=== PATIENT | male | born 1940 | race Caucasian/White ===

== ENCOUNTER 2017-10-03 15:17 | Inpatient (IN) | payer MEDICARE, OTHER ==
[2017-10-03] VITALS (12 sets, daily range): BP systolic 131–165; BP diastolic 63–81
[~2017-10-03] VITALS: Ht 175.3 cm; Wt 113.4 kg
--- NOTE | ~2017-10-03 | EC ---
PATIENT:LEONARD THOMPSON DATE OF SERVICE: 10/03/17 SEX: M MEDICAL RECORD: [id number] DATE OF : 40 LOCATION:[facility] AGE OF PATIENT: 77 ADMISSION DATE: 10/03/17 REFERRING PHYSICIAN: INTERPRETING PHYSICIAN: WENDY JOHNSON MD ECHOCARDIOGRAM REPORT ECHO CHARGES 4 ECHO COMPLETE Date: 10/05 CLINICAL DIAGNOSIS: CHF HX CAD/CABG/PACER ECHOCARDIOGRAPHIC MEASUREMENTS (adult normal given) AC root (d.<3.7cm) 4.3 cm LV Septum d (<1.2 cm> 1.5 cm Valve Excursion 1.7 cm LV Septum (systole) 1.7 cm Left Atria (s.<4.0cm> 4.3 cm LVPW d(<1.2cm) 1.4 cm RV (d.<2.3cm) 5.9 cm LVPW (sytole) 1.9 cm LV diastole(<5.6CM) 5.7 cm MV E-F(>70mm/sec) cm LV systole 3.7 cm LVOT Diameter 1.6 cm MV exc.(>10mm) 1.9 cm Est.ejection fraction (50-75%) % DOPPLER: LVIT cm/sec A 65.0 cm/sec E 123 cm/sec LA cm/sec RVSP 32 mmHg LVOT 86 cm/sec AOP1/2T m/s Asc. 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 Johnson TAPE# PACS Pericardial Effusion N DATE OF SERVICE: PROCEDURE: Transthoracic echocardiogram. FINDINGS: 1. The overall ejection fraction is 25% to 30%. There is anterior septal dyskinesis. 2. The left atrium is normal size, structure, and function. 3. The aortic valve is sclerotic. Mild aortic insufficiency. 4. The mitral valve has mild mitral regurgitation. ECHOCARDIOGRAM REPORT [id number] LEONARD THOMPSON 5. The tricuspid valve has mild tricuspid regurgitation. RVSP of 32 mmHg. 6. The right ventricle is severely dilated. 7. The right atrium is severely dilated. CONCLUSION: The patient has evidence of hypertensive heart disease. Inflow characteristics consistent with grade III diastolic dysfunction. The patient's ejection fraction is reduced and there are regional wall motion abnormalities. TRANSINT:[id number] Voice Confirmation ID: [id number] DOCUMENT ID: [id number] WENDY JOHNSON MD at 0927 CC: [id number] DICTATION DATE: 10/06/17822 [employer]: 10/06/17 0901 ADM IN [place] [id number] [place] [id number]
[2017-10-03] MEDS ORDERED: METOLAZONE2.5 MG PO (16:41)
[2017-10-03] MEDS ORDERED: ARICEPT5 MG PO ×2 (16:42→16:43)
[2017-10-03] MEDS ORDERED: POTASSIUM CHLO20 MEQ PO (16:42)
[2017-10-03] MEDS ORDERED: LEVOXYL50 MCG PO (16:43)
[2017-10-03] MEDS ORDERED: OMEPRAZOLE20 M1 PO (16:43)
[2017-10-03] MEDS ORDERED: REFRESH TEARS15 ML EACH EYE (16:44)
[2017-10-03] MEDS ORDERED: FUROSEMIDE20 MG PO (16:44)
[2017-10-03] MEDS ORDERED: COREG6.25 MG PO (16:44)
[2017-10-03] MEDS ORDERED: FLOMAX0.4 MG PO (16:45)
[2017-10-03] MEDS ORDERED: ASPIRIN EC81 M1 PO (16:45)
[2017-10-03] MEDS ORDERED: SENNA LAXATIVE8.6 MG PO (16:45)
[2017-10-03] MEDS ORDERED: ZYLOPRIM100 MG PO (16:46)
[2017-10-03] MEDS ORDERED: HYDROCODONE-APA1 TAB PO (16:48)
[2017-10-03 18:21] LABS: BASOPHILS 0.2 % (0-2); EOSINOPHILS 1.5 % (0-7); HEMATOCRIT 37.8 % (42.0-54.0); HEMOGLOBIN 12.2 g/dL (13.5-17.5); IMMATURE GRANULOCYTES 0.2 % (0-5); LYMPHOCYTES 13.2 % (15-50); MCH 29.3 pg (26.0-34.0); MCHC 32.3 g/dL (31.0-37.0); MCV 90.6 fL (80.0-100.0); MEAN PLATELET VOLUME 9.2 fL (7.4-10.4); MONOCYTES 10.3 % (2-11); NEUTROPHILS 74.6 % (40-80); PLATELET COUNT 284 10x3/uL (130-400); RBC 4.17 10x6/uL (4.20-6.10); RDW 16.3 % (11.5-14.5); WBC 9.5 10x3/uL (4.8-10.8)
[2017-10-03 18:37] LABS: ALBUMIN 2.8 g/dL (3.4-5.0); ANION GAP 4.6 mmol/L (8-16); BILIRUBIN - TOTAL 0.35 mg/dL (0.2-1.3); CARBON DIOXIDE 37.7 mmol/L (21.0-32.0); CREATININE - SERUM 1.2 mg/dL (0.6-1.3); POTASSIUM - SERUM 3.3 mmol/L (3.5-5.1); PROTEIN - SERUM 7.2 g/dL (6.4-8.2)
[2017-10-03 21:16] LABS: APPEARANCE CLEAR (CLEAR); BILIRUBIN NEGATIVE (NEGATIVE); COLOR YELLOW (YELLOW); GLUCOSE NEGATIVE (NEGATIVE); KETONE NEGATIVE (NEGATIVE); NITRITE NEGATIVE (NEGATIVE); PROTEIN NEGATIVE (NEGATIVE); SPECIFIC GRAVITY 1.015 (1.005-1.020); UROBILINOGEN NORMAL (NORMAL)
[2017-10-03 21:19] LABS: BACTERIA FEW /hpf (NONE SEEN); WHITE CELLS - URINE 0-5 /hpf (0-5)
[2017-10-04] VITALS (7 sets, daily range): BP systolic 136–160; BP diastolic 60–72; Ht 175.3 cm; Wt 113.4 kg
[2017-10-04] MEDS ORDERED: ATIVAN0.5 MG PO (12:50)
[2017-10-04] MEDS ORDERED: MIRALAX17 GM PO (12:55)
[2017-10-04 17:44] LABS: T4 THYROXIN - FREE 1.08 ng/dL (0.76-1.46); THYROID STIMULATING HORMONE 0.5 uIU/mL (0.36-3.74)
[2017-10-05] VITALS: BP 134/68
[2017-10-05 06:57] LABS: BASOPHILS 0.4 % (0-2); EOSINOPHILS 3.5 % (0-7); HEMATOCRIT 33.8 % (42.0-54.0); HEMOGLOBIN 10.9 g/dL (13.5-17.5); IMMATURE GRANULOCYTES 0.1 % (0-5); LYMPHOCYTES 22.3 % (15-50); MCH 28.9 pg (26.0-34.0); MCHC 32.2 g/dL (31.0-37.0); MCV 89.7 fL (80.0-100.0); MEAN PLATELET VOLUME 9.1 fL (7.4-10.4); MONOCYTES 8.7 % (2-11); PLATELET COUNT 284 10x3/uL (130-400); RBC 3.77 10x6/uL (4.20-6.10); RDW 15.9 % (11.5-14.5); WBC 7.7 10x3/uL (4.8-10.8)
[2017-10-05 07:04] LABS: ALBUMIN 2.3 g/dL (3.4-5.0); ALKALINE PHOSPHATASE 103 U/L (46-116); CALCIUM 9.5 mg/dL (8.5-10.1); CHLORIDE - SERUM 106 mmol/L (98-107); GLUCOSE 105 mg/dL (74-106); PROTEIN - SERUM 6.1 g/dL (6.4-8.2); SODIUM 143 mmol/L (136-145)
[2017-10-05 07:05] LABS: ALT (SGPT) 7 U/L (10-68); CALC OSMOLALITY 286 mosm/kg (275-300); CREATININE - SERUM 0.6 mg/dL (0.6-1.3); UREA NITROGEN 19 mg/dL (7-18); eGFR NON AFRICAN AMERICAN > 90 mL/min (90-120)
[2017-10-05 07:06] LABS: POTASSIUM - SERUM 2.9 mmol/L (3.5-5.1)
[2017-10-05 09:18] VITALS: BP 137/69
[2017-10-05 13:25] VITALS: BP 147/72
[2017-10-05 14:35] LABS: % SATURATION 15 % (15-55); IRON 37 ug/dl (35-150); TOTAL IRON BIND CAPACITY 237 ug/dl (260-445); UNSAT IRON BIND CAPACITY 200 ug/dl (150-375)
[2017-10-05 16:20] VITALS: BP 130/60
[2017-10-05 20:00] VITALS: BP 136/65
[2017-10-06 04:00] VITALS: BP 167/73
[2017-10-06 06:11] LABS: BASOPHILS 0.5 % (0-2); EOSINOPHILS 6.1 % (0-7); HEMATOCRIT 34.5 % (42.0-54.0); HEMOGLOBIN 11.1 g/dL (13.5-17.5); IMMATURE GRANULOCYTES 0.1 % (0-5); LYMPHOCYTES 24.1 % (15-50); MCH 28.7 pg (26.0-34.0); MCHC 32.2 g/dL (31.0-37.0); MCV 89.1 fL (80.0-100.0); MONOCYTES 9.1 % (2-11); NEUTROPHILS 60.1 % (40-80); PLATELET COUNT 265 10x3/uL (130-400); RBC 3.87 10x6/uL (4.20-6.10); RDW 15.9 % (11.5-14.5); WBC 8.2 10x3/uL (4.8-10.8)
[2017-10-06 06:36] LABS: ALBUMIN 2.4 g/dL (3.4-5.0); ALKALINE PHOSPHATASE 109 U/L (46-116); ALT (SGPT) 8 U/L (10-68); CALC OSMOLALITY 285 mosm/kg (275-300); CALCIUM 9.6 mg/dL (8.5-10.1); CARBON DIOXIDE 31.4 mmol/L (21.0-32.0); CHLORIDE - SERUM 106 mmol/L (98-107); GLUCOSE 107 mg/dL (74-106); POTASSIUM - SERUM 3.1 mmol/L (3.5-5.1); PROTEIN - SERUM 6.3 g/dL (6.4-8.2); SODIUM 143 mmol/L (136-145); UREA NITROGEN 16 mg/dL (7-18)
[2017-10-06 06:38] LABS: CREATININE - SERUM 0.8 mg/dL (0.6-1.3); eGFR NON AFRICAN AMERICAN > 90 mL/min (90-120)
[2017-10-06 07:53] VITALS: BP 154/68
[2017-10-06 12:18] VITALS: BP 164/80
[2017-10-06 16:21] VITALS: BP 159/86
[2017-10-06 20:14] VITALS: BP 147/70
[2017-10-06 23:41] VITALS: BP 89/42
[2017-10-07 01:42] VITALS: BP 180/89
[2017-10-07 04:20] VITALS: BP 155/75
[2017-10-07 06:58] LABS: BASOPHILS 0.5 % (0-2); EOSINOPHILS 6.6 % (0-7); HEMATOCRIT 31.4 % (42.0-54.0); IMMATURE GRANULOCYTES 0.3 % (0-5); LYMPHOCYTES 22.5 % (15-50); MCH 28.2 pg (26.0-34.0); MCHC 31.8 g/dL (31.0-37.0); MCV 88.7 fL (80.0-100.0); MEAN PLATELET VOLUME 9.4 fL (7.4-10.4); MONOCYTES 8.5 % (2-11); NEUTROPHILS 61.6 % (40-80); PLATELET COUNT 264 10x3/uL (130-400); RBC 3.54 10x6/uL (4.20-6.10); RDW 15.6 % (11.5-14.5); WBC 7.7 10x3/uL (4.8-10.8)
[2017-10-07 07:19] LABS: ALBUMIN 2.2 g/dL (3.4-5.0); ALKALINE PHOSPHATASE 100 U/L (46-116); ALT (SGPT) 7 U/L (10-68); BILIRUBIN - TOTAL 0.21 mg/dL (0.2-1.3); CALC OSMOLALITY 281 mosm/kg (275-300); CALCIUM 9.1 mg/dL (8.5-10.1); CARBON DIOXIDE 30.2 mmol/L (21.0-32.0); CHLORIDE - SERUM 106 mmol/L (98-107); CREATININE - SERUM 0.9 mg/dL (0.6-1.3); GLUCOSE 94 mg/dL (74-106); POTASSIUM - SERUM 3.3 mmol/L (3.5-5.1); PROTEIN - SERUM 5.7 g/dL (6.4-8.2); SODIUM 141 mmol/L (136-145); UREA NITROGEN 14 mg/dL (7-18); eGFR NON AFRICAN AMERICAN 87 mL/min (90-120)
[2017-10-07 08:20] LABS: FOLATE (FOLIC ACID) - SERUM 19.3 ng/mL (>3.0)
[2017-10-07 09:08] VITALS: BP 150/69
[2017-10-07 11:45] VITALS: BP 133/62
[2017-10-07 15:36] VITALS: BP 144/77
[2017-10-07 21:24] VITALS: BP 188/83
[2017-10-08 04:01] VITALS: BP 173/82
[2017-10-08 06:04] LABS: BASOPHILS 0.3 % (0-2); EOSINOPHILS 5.6 % (0-7); HEMATOCRIT 32.9 % (42.0-54.0); HEMOGLOBIN 10.7 g/dL (13.5-17.5); IMMATURE GRANULOCYTES 0.3 % (0-5); LYMPHOCYTES 21.6 % (15-50); MCH 28.7 pg (26.0-34.0); MCHC 32.5 g/dL (31.0-37.0); MCV 88.2 fL (80.0-100.0); MEAN PLATELET VOLUME 8.9 fL (7.4-10.4); MONOCYTES 9.1 % (2-11); NEUTROPHILS 63.1 % (40-80); PLATELET COUNT 231 10x3/uL (130-400); RBC 3.73 10x6/uL (4.20-6.10); RDW 15.7 % (11.5-14.5); WBC 7.6 10x3/uL (4.8-10.8)
[2017-10-08 06:26] LABS: ALBUMIN 2.2 g/dL (3.4-5.0); ALKALINE PHOSPHATASE 100 U/L (46-116); BILIRUBIN - TOTAL 0.23 mg/dL (0.2-1.3); CALC OSMOLALITY 283 mosm/kg (275-300); CALCIUM 9.1 mg/dL (8.5-10.1); CHLORIDE - SERUM 107 mmol/L (98-107); CREATININE - SERUM 0.8 mg/dL (0.6-1.3); GLUCOSE 104 mg/dL (74-106); POTASSIUM - SERUM 3.3 mmol/L (3.5-5.1); PROTEIN - SERUM 5.9 g/dL (6.4-8.2); SODIUM 142 mmol/L (136-145); UREA NITROGEN 14 mg/dL (7-18); eGFR NON AFRICAN AMERICAN > 90 mL/min (90-120)
[2017-10-08 06:28] LABS: ALT (SGPT) 9 U/L (10-68)
[2017-10-08 08:32] VITALS: BP 179/84
[2017-10-08 12:25] VITALS: BP 144/49
[2017-10-08 15:51] VITALS: BP 161/82
[2017-10-08 20:00] VITALS: BP 165/80
[2017-10-09 04:00] VITALS: BP 162/73
[2017-10-09 05:54] LABS: BASOPHILS 0.4 % (0-2); EOSINOPHILS 5.4 % (0-7); HEMATOCRIT 35.1 % (42.0-54.0); HEMOGLOBIN 11.2 g/dL (13.5-17.5); IMMATURE GRANULOCYTES 0.3 % (0-5); LYMPHOCYTES 22.4 % (15-50); MCH 28.6 pg (26.0-34.0); MCHC 31.9 g/dL (31.0-37.0); MCV 89.8 fL (80.0-100.0); MEAN PLATELET VOLUME 9.2 fL (7.4-10.4); MONOCYTES 8.8 % (2-11); NEUTROPHILS 62.7 % (40-80); PLATELET COUNT 206 10x3/uL (130-400); RBC 3.91 10x6/uL (4.20-6.10); RDW 15.7 % (11.5-14.5)
[2017-10-09 06:17] LABS: ALBUMIN 2.3 g/dL (3.4-5.0); ALKALINE PHOSPHATASE 105 U/L (46-116); ALT (SGPT) 9 U/L (10-68); BILIRUBIN - TOTAL 0.25 mg/dL (0.2-1.3); CALC OSMOLALITY 291 mosm/kg (275-300); CALCIUM 9.3 mg/dL (8.5-10.1); CARBON DIOXIDE 29.7 mmol/L (21.0-32.0); CHLORIDE - SERUM 111 mmol/L (98-107); CREATININE - SERUM 0.7 mg/dL (0.6-1.3); GLUCOSE 97 mg/dL (74-106); POTASSIUM - SERUM 3.9 mmol/L (3.5-5.1); PROTEIN - SERUM 6.1 g/dL (6.4-8.2); SODIUM 147 mmol/L (136-145); UREA NITROGEN 12 mg/dL (7-18); eGFR NON AFRICAN AMERICAN > 90 mL/min (90-120)
[2017-10-09 08:25] VITALS: BP 100/79
[2017-10-09] MEDS ORDERED: FLORAJEN3 CAPS460 MG PO (11:47)
[2017-10-09] MEDS ORDERED: OMNICEF300 MG PO (11:47)
[2017-10-09 12:38] VITALS: BP 130/61
== END 2017-10-09 13:43 | DRG 871 ==
LOC: D.ER 15:17 → D.MS 23:01
PROVIDERS: Emergency Medicine; Family Medicine; Internal Medicine Nephrology
DX: A41.9 Sepsis, unspecified organism (principal); G93.41 Metabolic encephalopathy; N17.9 Acute kidney failure, unspecified; E44.0 Moderate protein-calorie malnutrition; F03.90 Unspecified dementia, unspecified severity, without behavioral disturbance, psychotic disturbance, mood disturbance, and anxiety; I10 Essential (primary) hypertension; N40.0 Benign prostatic hyperplasia without lower urinary tract symptoms; M10.9 Gout, unspecified; E87.6 Hypokalemia; I87.2 Venous insufficiency (chronic) (peripheral); L21.9 Seborrheic dermatitis, unspecified

== ENCOUNTER 2017-10-20 17:34 | Emergency (ER) | payer MEDICARE, OTHER ==
[~2017-10-20] VITALS: Ht 175.3 cm; Wt 89.2 kg
[~2017-10-20 17:34] MED LIST: ARICEPT5 MG PO; ASPIRIN EC81 M1 PO; ATIVAN0.5 MG PO; COREG6.25 MG PO; FLOMAX0.4 MG PO; FLORAJEN3 CAPS460 MG PO; FUROSEMIDE20 MG PO; HYDROCODONE-APA1 TAB PO; LEVOXYL50 MCG PO; METOLAZONE2.5 MG PO; MIRALAX17 GM PO; OMEPRAZOLE20 M1 PO; OMNICEF300 MG PO; POTASSIUM CHLO20 MEQ PO; REFRESH TEARS15 ML EACH EYE; SENNA LAXATIVE8.6 MG PO; ZYLOPRIM100 MG PO
[2017-10-20 17:43] VITALS: Ht 175.3 cm; Wt 89.2 kg
[2017-10-20 18:36] LABS: BASOPHILS 0.4 % (0-2); EOSINOPHILS 6.2 % (0-7); HEMATOCRIT 35.2 % (42.0-54.0); HEMOGLOBIN 11.1 g/dL (13.5-17.5); IMMATURE GRANULOCYTES 0.3 % (0-5); LYMPHOCYTES 23.8 % (15-50); MCH 28.9 pg (26.0-34.0); MCHC 31.5 g/dL (31.0-37.0); MCV 91.7 fL (80.0-100.0); MEAN PLATELET VOLUME 9.2 fL (7.4-10.4); MONOCYTES 11.4 % (2-11); NEUTROPHILS 57.9 % (40-80); RBC 3.84 10x6/uL (4.20-6.10); RDW 16.3 % (11.5-14.5); WBC 9.5 10x3/uL (4.8-10.8)
[2017-10-20 18:38] LABS: PLATELET COUNT 342 10x3/uL (130-400)
[2017-10-20 19:09] LABS: ACETAMINOPHEN 8.7 ug/mL (10.0-30.0); ALBUMIN 2.5 g/dL (3.4-5.0); ALKALINE PHOSPHATASE 104 U/L (46-116); ALT (SGPT) 8 U/L (10-68); BILIRUBIN - TOTAL 0.14 mg/dL (0.2-1.3); CALC OSMOLALITY 287 mosm/kg (275-300); CALCIUM 9.1 mg/dL (8.5-10.1); CARBON DIOXIDE 31.8 mmol/L (21.0-32.0); CHLORIDE - SERUM 105 mmol/L (98-107); CREATININE - SERUM 0.9 mg/dL (0.6-1.3); GLUCOSE 112 mg/dL (74-106); POTASSIUM - SERUM 4.3 mmol/L (3.5-5.1); PROTEIN - SERUM 6.3 g/dL (6.4-8.2); SODIUM 142 mmol/L (136-145); UREA NITROGEN 25 mg/dL (7-18); eGFR NON AFRICAN AMERICAN 87 mL/min (90-120)
[2017-10-20 19:36] LABS: APPEARANCE CLEAR (CLEAR); BILIRUBIN NEGATIVE (NEGATIVE); COLOR YELLOW (YELLOW); GLUCOSE NEGATIVE (NEGATIVE); KETONE NEGATIVE (NEGATIVE); NITRITE NEGATIVE (NEGATIVE); PROTEIN NEGATIVE (NEGATIVE); UROBILINOGEN NORMAL (NORMAL)
[2017-10-20 19:38] LABS: BACTERIA FEW /hpf (NONE SEEN); RED CELLS - URINE 0-5 /hpf (0-5); WHITE CELLS - URINE 0-5 /hpf (0-5)
[2017-10-20 20:20] LABS: UDS - AMPHET NEGATIVE QUAL (NEGATIVE); UDS - BARB NEGATIVE QUAL (NEGATIVE); UDS - BENZO NEGATIVE QUAL (NEGATIVE); UDS - COCAINE NEGATIVE QUAL (NEGATIVE); UDS - OPIATE NEGATIVE QUAL (NEGATIVE); UDS - PCP NEGATIVE QUAL (NEGATIVE); UDS - THC NEGATIVE QUAL (NEGATIVE)
[2017-10-21 00:17] VITALS: BP 142/73
== END 2017-10-21 00:17 | disposition other institution (70) ==
LOC: D.ER 17:34
PROVIDERS: Family Medicine
DX: R41.0 Disorientation, unspecified (principal); G31.84 Mild cognitive impairment of uncertain or unknown etiology; I50.9 Heart failure, unspecified; Z86.79 Personal history of other diseases of the circulatory system; Z95.0 Presence of cardiac pacemaker

== ENCOUNTER 2017-11-07 12:25 | Emergency (ER) | payer MEDICARE, OTHER ==
[~2017-11-07] VITALS: Ht 175.3 cm; Wt 86.4 kg
[2017-11-07 12:43] VITALS: Ht 175.3 cm; Wt 86.4 kg
[2017-11-07 14:08] LABS: BASOPHILS 0.2 % (0-2); EOSINOPHILS 0.9 % (0-7); HEMATOCRIT 34.1 % (42.0-54.0); HEMOGLOBIN 10.9 g/dL (13.5-17.5); IMMATURE GRANULOCYTES 0.5 % (0-5); LYMPHOCYTES 13.5 % (15-50); MCH 28.9 pg (26.0-34.0); MCV 90.5 fL (80.0-100.0); MEAN PLATELET VOLUME 9.2 fL (7.4-10.4); MONOCYTES 12.5 % (2-11); NEUTROPHILS 72.4 % (40-80); RBC 3.77 10x6/uL (4.20-6.10); RDW 15.3 % (11.5-14.5); WBC 11.9 10x3/uL (4.8-10.8)
[2017-11-07 14:23] LABS: APTT 44.6 SECONDS (22.8-39.4)
[2017-11-07 14:26] LABS: PLATELET COUNT 239 10x3/uL (130-400)
[2017-11-07 14:27] LABS: INR 1.31 (0.85-1.17); PROTIME 15.9 SECONDS (11.6-15.0)
[2017-11-07 14:32] LABS: D-DIMER-QUANTITATIVE 1.46 ug/mLFEU (0.20-0.54)
[2017-11-07 14:43] LABS: ALBUMIN 2.1 g/dL (3.4-5.0); ALKALINE PHOSPHATASE 83 U/L (46-116); ALT (SGPT) 13 U/L (10-68); BILIRUBIN - TOTAL 0.37 mg/dL (0.2-1.3); CALC OSMOLALITY 274 mosm/kg (275-300); CALCIUM 9.9 mg/dL (8.5-10.1); CARBON DIOXIDE 32.1 mmol/L (21.0-32.0); CHLORIDE - SERUM 101 mmol/L (98-107); GLUCOSE 103 mg/dL (74-106); POTASSIUM - SERUM 4.2 mmol/L (3.5-5.1); PROTEIN - SERUM 6.4 g/dL (6.4-8.2); SODIUM 136 mmol/L (136-145); UREA NITROGEN 21 mg/dL (7-18); eGFR NON AFRICAN AMERICAN 77 mL/min (90-120)
[2017-11-07 14:52] LABS: CKMB 0.7 U/L (0.0-3.6); CREATINE KINASE 15 UL (21-232); TROPONIN-I 0.021 ng/mL (0.000-0.060)
[2017-11-07 15:05] LABS: APPEARANCE HAZY (CLEAR); COLOR YELLOW (YELLOW); GLUCOSE NEGATIVE (NEGATIVE); KETONE NEGATIVE (NEGATIVE); NITRITE POSITIVE (NEGATIVE); PROTEIN 2+ mg/dL (NEGATIVE); SPECIFIC GRAVITY 1.005 (1.005-1.020)
[2017-11-07 15:06] LABS: BILIRUBIN NEGATIVE (NEGATIVE); UROBILINOGEN NORMAL (NORMAL); WHITE CELLS - URINE >50 /hpf (0-5)
[2017-11-07 15:07] LABS: BACTERIA MANY /hpf (NONE SEEN); EPITHELIAL CELLS 0-5 /hpf (0-5)
[2017-11-07 18:14] VITALS: BP 131/60
== END 2017-11-07 16:48 | disposition short-term general hospital (02) ==
LOC: D.ER 12:25
PROVIDERS: Family Medicine
DX: R41.82 Altered mental status, unspecified (principal); M79.1 Myalgia; N39.0 Urinary tract infection, site not specified; I50.9 Heart failure, unspecified; Z95.0 Presence of cardiac pacemaker; F03.90 Unspecified dementia, unspecified severity, without behavioral disturbance, psychotic disturbance, mood disturbance, and anxiety

== ENCOUNTER 2018-02-16 17:17 | Emergency (ER) | payer MEDICARE, OTHER ==
[~2018-02-16] VITALS: Ht 175.3 cm; Wt 100.0 kg
[2018-02-16 17:22] VITALS: Ht 175.3 cm; Wt 100.0 kg
[2018-02-16 18:31] LABS: BASOPHILS 0.4 % (0-2); EOSINOPHILS 3.1 % (0-7); HEMATOCRIT 30.5 % (42.0-54.0); HEMOGLOBIN 9.7 g/dL (13.5-17.5); IMMATURE GRANULOCYTES 0.1 % (0-5); LYMPHOCYTES 15.8 % (15-50); MCH 27.6 pg (26.0-34.0); MCHC 31.8 g/dL (31.0-37.0); MCV 86.6 fL (80.0-100.0); MEAN PLATELET VOLUME 8.5 fL (7.4-10.4); NEUTROPHILS 71.6 % (40-80); RBC 3.52 10x6/uL (4.20-6.10); RDW 14.9 % (11.5-14.5); WBC 8.5 10x3/uL (4.8-10.8)
[2018-02-16 18:36] LABS: PLATELET COUNT 325 10x3/uL (130-400)
[2018-02-16 18:44] LABS: ALBUMIN 2.5 g/dL (3.4-5.0); ALKALINE PHOSPHATASE 100 U/L (46-116); ALT (SGPT) 19 U/L (10-68); AMYLASE - SERUM 27 U/L (25-115); BILIRUBIN - TOTAL 0.22 mg/dL (0.2-1.3); CALC OSMOLALITY 289 mosm/kg (275-300); CALCIUM 8.9 mg/dL (8.5-10.1); CARBON DIOXIDE 27.9 mmol/L (21.0-32.0); CHLORIDE - SERUM 104 mmol/L (98-107); CREATININE - SERUM 0.9 mg/dL (0.6-1.3); LIPASE 107 U/L (73-393); POTASSIUM - SERUM 3.9 mmol/L (3.5-5.1); PROTEIN - SERUM 7.4 g/dL (6.4-8.2); SODIUM 141 mmol/L (136-145); UREA NITROGEN 30 mg/dL (7-18); eGFR NON AFRICAN AMERICAN 87 mL/min (90-120)
[2018-02-16 18:46] LABS: GLUCOSE 158 mg/dL (74-106)
[2018-02-16 19:54] LABS: APPEARANCE CLEAR (CLEAR); BILIRUBIN NEGATIVE (NEGATIVE); COLOR YELLOW (YELLOW); GLUCOSE NEGATIVE (NEGATIVE); KETONE NEGATIVE (NEGATIVE); NITRITE NEGATIVE (NEGATIVE); PROTEIN NEGATIVE (NEGATIVE); UROBILINOGEN NORMAL (NORMAL)
[2018-02-16 19:55] LABS: BACTERIA FEW /hpf (NONE SEEN); MUCUS <1+ /lpf (NONE SEEN); RED CELLS - URINE 0-5 /hpf (0-5); WHITE CELLS - URINE 0-5 /hpf (0-5)
[2018-02-16 22:42] VITALS: BP 118/76
== END 2018-02-16 22:43 | disposition home or self-care (01) ==
LOC: D.ER 17:17
PROVIDERS: Family Medicine
DX: K59.09 Other constipation (principal); F03.90 Unspecified dementia, unspecified severity, without behavioral disturbance, psychotic disturbance, mood disturbance, and anxiety; H91.90 Unspecified hearing loss, unspecified ear; I50.9 Heart failure, unspecified; Z95.0 Presence of cardiac pacemaker; N42.9 Disorder of prostate, unspecified

== ENCOUNTER 2018-11-10 10:15 | Emergency (ER) | payer OTHER ==
[2018-11-10 10:24] VITALS: Ht 175.3 cm
[2018-11-10 11:46] LABS: HEMATOCRIT 26.3 % (42.0-54.0); HEMOGLOBIN 8.2 g/dL (13.5-17.5); LYMPHOCYTES 26.7 % (15-50); MCH 27.2 pg (26.0-34.0); MCHC 31.2 g/dL (31.0-37.0); MCV 87.1 fL (80.0-100.0); MEAN PLATELET VOLUME 9.4 fL (7.4-10.4); NEUTROPHILS 62.2 % (40-80); PLATELET COUNT 274 10x3/uL (130-400); RBC 3.02 10x6/uL (4.20-6.10); RDW 20.8 % (11.5-14.5); WBC 4.2 10x3/uL (4.8-10.8)
[2018-11-10 11:54] LABS: % SATURATION 9 % (15-55); IRON 25 ug/dl (35-150); TOTAL IRON BIND CAPACITY 273 ug/dl (260-445); UNSAT IRON BIND CAPACITY 248 ug/dl (150-375)
[2018-11-10 11:57] LABS: APTT 38.2 SECONDS (22.8-39.4); INR 1.45 (0.85-1.17)
[2018-11-10 12:04] LABS: ALBUMIN 2.6 g/dL (3.4-5.0); ANION GAP 15.9 mmol/L (8-16); BILIRUBIN - TOTAL 0.68 mg/dL (0.2-1.3); CALCIUM 8.3 mg/dL (8.5-10.1); CARBON DIOXIDE 20.8 mmol/L (21.0-32.0); CREATININE - SERUM 2.2 mg/dL (0.6-1.3); POTASSIUM - SERUM 4.7 mmol/L (3.5-5.1); PROTEIN - SERUM 7.1 g/dL (6.4-8.2)
[2018-11-10] MEDS ORDERED: FERROUS GLUCON324 MG PO (12:21)
[2018-11-10 12:22] LABS: MAGNESIUM - SERUM 1.5 mg/dL (1.8-2.4); THYROID STIMULATING HORMONE 2.77 uIU/mL (0.36-3.74)
[2018-11-10] MEDS ORDERED: MAG 6464 MG PO (12:28)
[2018-11-10 13:00] VITALS: BP 135/69
[2018-11-10 13:28] LABS: AMORPHOUS SEDIMENT >1+ /lpf (NONE SEEN); APPEARANCE SL CLDY (CLEAR); BACTERIA MODERATE /hpf (NONE SEEN); BILIRUBIN NEGATIVE (NEGATIVE); COLOR YELLOW (YELLOW); EPITHELIAL CELLS 0-5 /hpf (0-5); GLUCOSE NEGATIVE (NEGATIVE); GRANULAR CAST RARE /lpf (NONE SEEN); KETONE NEGATIVE (NEGATIVE); MUCUS <1+ /lpf (NONE SEEN); NITRITE NEGATIVE (NEGATIVE); PROTEIN TRACE mg/dL (NEGATIVE); UROBILINOGEN NORMAL (NORMAL)
[2018-11-10 13:29] LABS: HYALINE CAST RARE /lpf (NONE SEEN)
== END 2018-11-10 16:14 ==
LOC: D.ER 10:15
PROVIDERS: Emergency Medicine
DX: D50.9 Iron deficiency anemia, unspecified (principal); I12.9 Hypertensive chronic kidney disease with stage 1 through stage 4 chronic kidney disease, or unspecified chronic kidney disease; N18.9 Chronic kidney disease, unspecified; E83.42 Hypomagnesemia

== ENCOUNTER → 2020-06-26 18:09 | Outpatient (CLI) | payer MEDICARE ==
[~2020-06-26 18:09] MED LIST changes: +FERROUS GLUCON324 MG PO; +MAG 6464 MG PO
[2020-06-26 20:12] LABS: BILIRUBIN NEGATIVE (NEGATIVE); KETONE NEGATIVE (NEGATIVE); NITRITE NEGATIVE (NEGATIVE); UROBILINOGEN NORMAL mg/dL (< 2); WHITE CELLS - URINE >50 HPF (0-1)
[2020-06-26 20:13] LABS: BACTERIA MANY HPF (NONE SEEN); SQUAMOUS EPITHELIAL 0-5 HPF (0-4)
== END | disposition home or self-care (01) ==
LOC: D.LABREF 18:09
PROVIDERS: ATTEND Family Medicine
DX: I50.20 Unspecified systolic (congestive) heart failure (principal)